=== PATIENT | male | born 1970 | race Caucasian/White ===

== ENCOUNTER 2017-09-10 22:11 | Emergency (ER) | payer OTHER ==
[~2017-09-10 22:11] MED LIST: CIPROFLOXACIN500 MG PO; INVEGA3 MG INJ; NAPROSYN500 MG PO; NORCO1 TA2 PO
[2017-09-10 23:39] VITALS: BP 117/77
== END 2017-09-10 23:39 | disposition home or self-care (01) ==
LOC: ED 22:11
DX: G44.209 Tension-type headache, unspecified, not intractable (principal); F20.9 Schizophrenia, unspecified
CPT/HCPCS: J1885